=== PATIENT | female | born 1975 | race African-American/Black ===

== ENCOUNTER 2020-01-16 16:13 | Emergency (ER) | payer SELFPAY ==
[~2020-01-16] VITALS: Ht 162.6 cm; Wt 104.8 kg
[2020-01-16 16:21] VITALS: BP 160/72
--- NOTE | 2020-01-16 16:30 | NUR ---
C/O HEADACHE X 1.5 WEEK ACCOMPANIED BY HIGH BLOOD PRESSURE. PT STATES BP AT HOME WAS 180/90. PT REPORTS PRESSURE LIKE PAIN TO FOREHEAD THAT HAS BEEN UNRELIEVED BY IBUPROFEN. PT A & O X4, ANSWERING QUESTIONS APPROPRIATELY. BUE/BLE STRENGTH EQUAL. NO SLURRED SPEECH/FACIAL DROOP OR UNILATERAL WEAKNESS NOTED. BED IN LOW POSITION, SIDE RAIL UP X1
[2020-01-16] MEDS ORDERED: KETOROLAC 30 MG/ML VIAL IM ONE (16:35)
--- NOTE | 2020-01-16 17:10 | NUR ---
MYKEL ELLIS EVALUATING PT AT BEDSIDE
[2020-01-16 18:09] LABS: BASOPHILS # (AUTO) 0.1 K/uL (0.00-0.22); BASOPHILS % (AUTO) 1.3 % (0.0-2.0); EOSINOPHILS # (AUTO) 0.2 K/uL (0-0.4); EOSINOPHILS % (AUTO) 2.7 % (0.0-4.0); HEMATOCRIT 44.2 % (36-48); HEMOGLOBIN 14.6 g/dL (12.0-16.0); LYMPHOCYTES # (AUTO) 1.6 K/uL (2.5-16.5); LYMPHOCYTES % (AUTO) 24.2 % (20.5-51.1); MEAN CORPUSCULAR HEMOGLOBIN 28 pg (27-31); MEAN CORPUSCULAR HGB CONC 33 g/dL (33-37); MEAN CORPUSCULAR VOLUME 83.9 fL (80-94); MONOCYTES # (AUTO) 0.7 K/uL (0.8-1.0); MONOCYTES % (AUTO) 10.2 % (1.7-9.3); NEUTROPHILS # (AUTO) 4.1 K/uL (1.8-7.7); NEUTROPHILS % (AUTO) 61.6 % (42.2-75.2); PLATELET COUNT (AUTO) 298 K/uL (140-450); RED BLOOD CELL COUNT(AUTO) 5.27 MIL/uL (4.20-5.40); RED CELL DISTRIBUTION WIDTH 14.5 % (11.6-13.7); WHITE BLOOD COUNT (AUTO) 6.7 K/uL (4.8-10.8)
[2020-01-16 18:15] LABS: ANION GAP 13.8 (8-16); CARBON DIOXIDE 25.8 mmol/L (21-32); POTASSIUM 3.6 mmol/L (3.5-5.1); TOTAL BILIRUBIN 0.5 mg/dL (0.0-1.0)
[2020-01-16 18:49] LABS: APPEARANCE,URINE CLEAR (CLEAR); BILIRUBIN,URINE 1+ (NEGATIVE); BLOOD, URINE NEGATIVE (NEGATIVE); COLOR,URINE YELLOW (YELLOW); LEUKOCYTE ESTERASE ,URINE NEGATIVE (NEGATIVE); NITRITE, URINE NEGATIVE (NEGATIVE); UGLUCOSE NEGATIVE (NEGATIVE)
--- NOTE | 2020-01-16 19:15 | NUR ---
RECIEVED REPORT FROM ESTEVAN SANCHEZ. TRANSFER OF CARE AT THIS TIME.
[2020-01-16 19:57] VITALS: BP 141/78
--- NOTE | 2020-01-16 19:57 | NUR ---
Patient discharged with v/s stable. Written and verbal after care instructions given and explained. Patient alert, oriented and verbalized understanding of instructions. Ambulatory with steady gait. All questions addressed prior to discharge. ID band removed. Patient advised to follow up with PMD. Rx of NAPROXEN, NORCO given. Patient educated on indication of medication including possible reaction and side effects. Opportunity to ask questions provided and answered.
== END 2020-01-16 19:57 | disposition home or self-care (01) ==
LOC: MED 16:13
DX: I10 Essential (primary) hypertension (principal)
CPT/HCPCS: 36415; 80053; 81003; 81025; 85025; 93005; 96372; 99284; J1885

== ENCOUNTER 2022-10-25 13:20 | Emergency (ER) | payer MEDICAID ==
[~2022-10-25] VITALS: Ht 162.6 cm; Wt 113.9 kg
[2022-10-25 13:28] VITALS: BP 133/91
--- NOTE | 2022-10-25 14:00 | NUR ---
47/F WALKED IN C/O PALPITATION X 1 WK. DENIES CP OR RADIATION. DENIES TRAUMA. DENIES DIZZINESS. AAO4, AMBULATORY, VITALS STABLE. PMH: HPT. taking Amlodipine 5 mg QD
[2022-10-25 15:04] LABS: BASOPHILS # (AUTO) 0.1 K/uL (0.00-0.22); BASOPHILS % (AUTO) 1.1 % (0.0-2.0); EOSINOPHILS # (AUTO) 0.2 K/uL (0-0.4); EOSINOPHILS % (AUTO) 2.9 % (0.0-4.0); HEMATOCRIT 43.2 % (36-48); HEMOGLOBIN 14.5 g/dL (12.0-16.0); LYMPHOCYTES # (AUTO) 1.9 K/uL (2.5-16.5); MEAN CORPUSCULAR HEMOGLOBIN 28 pg (27-31); MEAN CORPUSCULAR HGB CONC 33 g/dL (33-37); MEAN CORPUSCULAR VOLUME 83.9 fL (80-94); MONOCYTES # (AUTO) 0.6 K/uL (0.8-1.0); MONOCYTES % (AUTO) 8.3 % (1.7-9.3); NEUTROPHILS # (AUTO) 4.7 K/uL (1.8-7.7); NEUTROPHILS % (AUTO) 62.7 % (42.2-75.2); PLATELET COUNT (AUTO) 289 K/uL (140-450); RED BLOOD CELL COUNT(AUTO) 5.15 MIL/uL (4.20-5.40); RED CELL DISTRIBUTION WIDTH 14.1 % (11.6-13.7); WHITE BLOOD COUNT (AUTO) 7.4 K/uL (4.8-10.8)
[2022-10-25 15:24] LABS: ANION GAP 13.7 (8-16); CREATININE 0.9 mg/dL (0.6-1.3); POTASSIUM 3.7 mmol/L (3.5-5.1)
--- NOTE | 2022-10-25 16:15 | NUR ---
Patient discharged with v/s stable. Written and verbal after care instructions given and explained. Patient verbalized understanding. Ambulatory with steady gait. All questions addressed prior to discharge. Advised to follow up with PMD.
== END 2022-10-25 16:15 | disposition home or self-care (01) ==
LOC: MED 13:20
DX: R00.2 Palpitations (principal); I10 Essential (primary) hypertension; Z79.899 Other long term (current) drug therapy
CPT/HCPCS: 36415; 80048; 84443; 85025; 93005; 99284